=== PATIENT | female | born 1950 | race Two or more races ===

== ENCOUNTER 2021-06-13 21:57 | Inpatient (IN) | payer MEDICARE, OTHER ==
[~2021-06-13] VITALS: Ht 157.5 cm; Wt 69.9 kg
[2021-06-13] MEDS ORDERED: AMLO-213 PO (22:29)
[2021-06-13] MEDS ORDERED: BENA40TA8 PO (22:29)
[2021-06-13] MEDS ORDERED: HYDR25TA4 PO (22:30)
[2021-06-13] MEDS ORDERED: ATOR80TA PO (22:32)
[2021-06-13] MEDS ORDERED: DONE10TA44 PO (22:32)
[2021-06-13] MEDS ORDERED: SERT100T PO (22:34)
[2021-06-13] MEDS ORDERED: BLOOD SUGAR DIAGNOSTIC 1 EACH STRIP IN ONE (23:00)
[2021-06-13] MEDS ORDERED: TEMAZEPAM 7.5 MG CAPSULE PO PRN (23:00)
[2021-06-13] MEDS ORDERED: MAG HYDROX/AL HYDROX/SIMETH 30 ML UDC PO PRN (23:00)
[2021-06-13] MEDS ORDERED: MAGNESIUM HYDROXIDE 30 ML UDC PO PRN (23:00)
[2021-06-13 23:01] VITALS: BP 146/68
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
--- NOTE | 2021-06-13 23:45 | NUR ---
GPS RN NOTE, PATIENT NEEDS A MEDICATION RECONCILIATION. PAGED [facility]. WAITING FOR DR ANGIE RAMIREZ TO RETURN CALL. WILL CONTINUE TO MONITOR THIS PATIENT WITH THE HELP OF STAFF.
[2021-06-14 00:29] VITALS: BP 146/68
--- NOTE | 2021-06-14 01:00 | NUR ---
GPS RN NOTE, PATIENT NEEDS A MEDICATION RECONCILIATION. PAGED [facility]. WAITING FOR DR ANGIE RAMIREZ TO RETURN CALL. WILL CONTINUE TO MONITOR THIS PATIENT WITH THE HELP OF STAFF.
--- NOTE | 2021-06-14 06:33 | NUR ---
GPS RN NOTES: CALLED TO NOTIFY PATIENT DAUGHTER (JIL CALLAHAN @ [phone]) OF PATIENT ADMISSION AT 0638 BUT NUMBER WAS NOT REACHABLE. WILL ENDORSE TO AM SHIFT TO FOLLOW UP.
[2021-06-14 07:01] LABS: BASOPHILS % (AUTO) 0.8 % (0.0-2.0); EOSINOPHILS % (AUTO) 2.7 % (0.0-6.0); HEMATOCRIT 36 % (33-45); LYMPHOCYTES # (AUTO) 2.2 K/uL (0.8-4.8); LYMPHOCYTES % (AUTO) 52.2 % (20.0-44.0); MEAN CORPUSCULAR HGB CONC 33 g/dl (31.0-36.0); MEAN CORPUSCULAR VOLUME 92 fL (82-100); MONOCYTES # (AUTO) 0.4 K/uL (0.1-1.30); MONOCYTES % (AUTO) 9.7 % (2.0-12.0); NEUTROPHILS # (AUTO) 1.5 K/uL (1.8-8.9); NEUTROPHILS % (AUTO) 34.6 % (43.0-81.0); PLATELET COUNT (AUTO) 243 K/uL (150-450); WHITE BLOOD COUNT (AUTO) 4.2 K/uL (4.3-11.0)
[2021-06-14 07:19] LABS: CALCIUM, SERUM 8.9 mg/dL (8.5-10.1); CREATININE 0.8 mg/dL (0.6-1.3); POTASSIUM 3.7 mmol/L (3.5-5.1)
[2021-06-14 08:00] VITALS: BP 122/91
--- NOTE | 2021-06-14 09:04 | NUR ---
Social Work Note/Substance Abuse Intervention: Patient was provided with a brief substance abuse intervention and referred to [facility] ([phone]), [facility] ([phone]), and [facility] ([phone]) for drinking wine everyday.
--- NOTE | 2021-06-14 10:09 | NUR ---
JACINTO Initial Discharge Plan: Patient currently resides at [address] [place] [address]; ([phone]). Pt lives alone and has a caregiver that will take care of pt during the week for about 4 hours. Pt would want to go back home upon discharge. JACINTO will work with the MD, treatment team, and family to help coordinate appropriate discharge.
--- NOTE | 2021-06-14 10:26 | NUR ---
JACINTO Family Contact: JACINTO contacted patient's daughter Masha ([phone]) to gather collateral. SW discussed treatment plan and discharge plan. Daughter stated that she is the probate conservator and stated she will send the documents to this specification writer. Daughter shared that she would want pt to go to a nursing facility because she has had 7 hospitalizations has been non compliant with her medications at home. She reported she does have a caregiver at home during the noon and afternoon (switching shifts of caregivers). Daughter expressed that pt is an alcoholic and has been drinking with neighbor. Daughter expressed that if the unit receives a call from person named Shad not to share any medical information and restraining order is filed against him. SW notified the unit and doctor.
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
--- NOTE | 2021-06-14 12:59 | NUR ---
PROBATE CONSERVATOR: Patient's daughter Masha ([phone]) sent probate conservatorship documents. SW placed in patient's chart.
[2021-06-14 16:00] VITALS: BP 145/79
[2021-06-14] MEDS: BLOOD SUGAR DIAGNOSTIC 1 EACH STRIP IN SCH ×2 (17:15→21:23)
[2021-06-14] MEDS: risperiDONE 1 MG TABLET PO SCH (17:34)
[2021-06-14 20:00] VITALS: BP_SYST 138; BP_SYST 164; BP_DIAS 80; BP_DIAS 88
[2021-06-14] MEDS: clonazePAM 0.5 MG TABLET PO PRN (20:28)
--- NOTE | 2021-06-14 20:30 | NUR ---
RN NOTES: ANXIETY PT.C/O VERY ANXIOUS , RESTLESS ,PACING IN HALLWAY PRN KLONOPIN 0.5 MG PO GIVEN WILL CONTINUE TO MONITOR.
[2021-06-14] MEDS: ATORVASTATIN 40 MG TABLET PO SCH (21:11)
[2021-06-14] MEDS: DONEPEZIL 5 MG TABLET PO SCH (21:11)
[2021-06-15] MEDS: BLOOD SUGAR DIAGNOSTIC 1 EACH STRIP IN SCH (07:36)
[2021-06-15 08:00] VITALS: BP 114/73
[2021-06-15] MEDS: SERTRALINE HCL 25 MG TABLET PO SCH ×2 (08:17→09:00)
[2021-06-15] MEDS: THIAMINE HCL 100 MG TABLET PO SCH ×2 (08:17→09:00)
[2021-06-15] MEDS: AMLODIPINE BESYLATE 10 MG TABLET PO SCH ×2 (08:17→09:00)
[2021-06-15] MEDS: risperiDONE 1 MG TABLET PO SCH ×3 (08:18→16:52)
[2021-06-15] MEDS: BENAZEPRIL HCL 20 MG TABLET PO SCH ×2 (08:18→09:00)
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
--- NOTE | 2021-06-15 12:07 | NUR ---
RN-NOTES DR. SANTIAGO IN THE UNIT WITH VERBAL ORDER TO D/C BS CHECK.NOTED AND CARRIED OUT.
[2021-06-15] MEDS ORDERED: IBUPROFEN 400 MG TABLET PO PRN (12:30)
[2021-06-15 16:00] VITALS: BP 143/72
[2021-06-15] MEDS: clonazePAM 0.5 MG TABLET PO PRN (19:38)
--- NOTE | 2021-06-15 19:39 | NUR ---
RN NOTES: ANXIETY PT.C/O VERY ANXIOUS , RESTLESS,PARANOID ,PACING IN HALLWAY PRN KLONOPIN 0.5 MG PO GIVEN WILL CONTINUE TO MONITOR.
[2021-06-15 20:00] VITALS: BP 129/80
[2021-06-15] MEDS: DONEPEZIL 5 MG TABLET PO SCH (21:10)
[2021-06-15] MEDS: ATORVASTATIN 40 MG TABLET PO SCH (21:10)
[2021-06-16 08:00] VITALS: BP 138/88
[2021-06-16] MEDS: SERTRALINE HCL 25 MG TABLET PO SCH (08:35)
[2021-06-16] MEDS: risperiDONE 1 MG TABLET PO SCH ×2 (08:35→16:08)
[2021-06-16] MEDS: THIAMINE HCL 100 MG TABLET PO SCH (08:37)
[2021-06-16] MEDS: BENAZEPRIL HCL 20 MG TABLET PO SCH (08:37)
[2021-06-16] MEDS: AMLODIPINE BESYLATE 10 MG TABLET PO SCH (08:38)
[2021-06-16] MEDS: clonazePAM 0.5 MG TABLET PO PRN (13:04)
[2021-06-16] MEDS: ACETAMINOPHEN 325 MG TABLET PO PRN (13:04)
--- NOTE | 2021-06-16 13:04 | NUR ---
RN-CO: KLONOPIN 0.5 MG PO GIVEN FOR ANXIETY.
[2021-06-16 16:00] VITALS: BP 116/69
[2021-06-16 20:19] VITALS: BP 106/54
[2021-06-16] MEDS: DONEPEZIL 5 MG TABLET PO SCH (21:33)
[2021-06-16] MEDS: ATORVASTATIN 40 MG TABLET PO SCH (21:33)
[2021-06-17 08:00] VITALS: BP 105/58
[2021-06-17] MEDS: SERTRALINE HCL 50 MG TABLET PO SCH (08:50)
[2021-06-17] MEDS: AMLODIPINE BESYLATE 10 MG TABLET PO SCH (08:51)
[2021-06-17] MEDS: BENAZEPRIL HCL 20 MG TABLET PO SCH (08:52)
[2021-06-17] MEDS: THIAMINE HCL 100 MG TABLET PO SCH (08:53)
--- NOTE | 2021-06-17 10:53 | NUR ---
PROBATE CONSERVATOR: Patient's daughter Masha ([phone]) is agreeable of pt going to [facility].
--- NOTE | 2021-06-17 10:54 | NUR ---
SNF Referral: Per patient's daughters request who is the probate conservator. SW sent clinicals to [facility] to [facility] ([phone]) [facility]. SW sent H & P, progress notes, and medication list.
[2021-06-17 16:00] VITALS: BP 131/68
[2021-06-17 20:01] VITALS: BP 134/68
[2021-06-17] MEDS: DONEPEZIL 5 MG TABLET PO SCH (22:09)
[2021-06-17] MEDS: ATORVASTATIN 40 MG TABLET PO SCH (22:09)
[2021-06-17] MEDS: ACETAMINOPHEN 325 MG TABLET PO PRN (22:13)
--- NOTE | 2021-06-17 22:16 | NUR ---
GPS RN NOTES: PATIENT C/O BILATERAL KNEE AND WRIST PAIN. RATES PAIN LEVEL 6/10. TYLENOL 650MG GIVEN PO AT 2213. WILL CONTINUE TO MONITOR.
--- NOTE | 2021-06-18 06:56 | NUR ---
GPS RN CLOSING NOTES: PATIENT IS AWAKE, A/O X2. PATIENT SLEPT 6HR THIS SHIFT. NO S/S OF DISTRESS NOTED. RESPIRATION EVEN AND UNLABORED WITH EQUAL RISE AND FALL OF THE CHEST, ON ROOM AIR. ALL PATIENT CARE NEEDS HAVE BEEN MET ANTICIPATED. WILL CONTINUE TO MONITOR AND ENDORSE TO AM SHIFT TO FOLLOW UP.
[2021-06-18 08:00] VITALS: BP 127/71
[2021-06-18] MEDS: QUETIAPINE FUMARATE 25 MG TABLET PO SCH (08:27)
[2021-06-18] MEDS: SERTRALINE HCL 50 MG TABLET PO SCH (08:27)
[2021-06-18] MEDS: THIAMINE HCL 100 MG TABLET PO SCH (08:27)
[2021-06-18] MEDS: AMLODIPINE BESYLATE 10 MG TABLET PO SCH (08:28)
[2021-06-18] MEDS: BENAZEPRIL HCL 20 MG TABLET PO SCH (08:28)
--- NOTE | 2021-06-18 09:09 | NUR ---
Court Hearing Notification: SW contacted patient's probate conservator Masha, daughter, ([phone]) and notified of patient's 7553 hearing. SW left a detailed voicemail.
--- NOTE | 2021-06-18 10:20 | NUR ---
Court Hearing: Patient's court hearing for 8710 was today and it was upheld for GD.
[2021-06-18] MEDS: ACETAMINOPHEN 325 MG TABLET PO PRN (10:44)
--- NOTE | 2021-06-18 10:53 | NUR ---
SNF Contact: JACINTO received a call from [facility] to [facility] ([phone]) frame bander for placement option. JACINTO sent H & P, progress notes, and medication list. Addendum: 06/18/21 at 1053 by JACINTO [facility] SN[facility] Contact: JACINTO received a call from [facility] ([phone]) who stated that pt is accepted.
--- NOTE | 2021-06-18 10:54 | NUR ---
JACINTO Note: SW spoke with patient and stated that she is accepted at [facility] and she is agreeable of going to the nursing facility.
--- NOTE | 2021-06-18 10:54 | NUR ---
PROBATE CONSERVATOR: SW contacted patient's daughter Masha ([phone]) probate conservator and notified that pt will be discharged 06/19/21 to [facility] [place] [facility] and pt is accepting.
[2021-06-18 16:00] VITALS: BP_SYST 130; BP_SYST 96; BP_DIAS 67; BP_DIAS 71
[2021-06-18 19:53] VITALS: BP 153/69
[2021-06-18] MEDS: ATORVASTATIN 40 MG TABLET PO SCH (21:21)
[2021-06-18] MEDS: DONEPEZIL 5 MG TABLET PO SCH (21:21)
--- NOTE | 2021-06-18 21:50 | NUR ---
GPS RN NOTE PATIENT TAKES 80 MG OF LIPITOR SCHEDULED AT 2200, BUT ONLY 1 LIPITOR (40MG) WAS TAKEN OUT OF OMNICELL THE FIRST TIME. ANOTHER LIPITOR WAS TAKEN OUT FROM OMNICELL AGAIN AND TOTAL 3 LIPITOR 40 MG EACH LEFT IN THE OMNICELL AT THAT TIME. TOTAL OF 80 MG OF LIPITOR WAS ADMINISTERED TO THE PATIENT ORDERED.
--- NOTE | 2021-06-19 06:30 | NUR ---
COVID SWAB SENT TO LAB.
[2021-06-19 08:00] VITALS: BP 142/61
--- NOTE | 2021-06-19 08:17 | NUR ---
Discharge Note" [facility] [place] [facility] [place] [facility] [address] [facility] [address], [place] [address]; ). Please arrange ambulance at 2PM. Emergency Vehicle Dispatcher spoke with [facility] Assembly Leader at [facility]; ([phone]), who stated patient will be accepted today. Patients daughter Probate Conservator Masha ([phone]) is aware and agreeable of dc. Patient is alert and oriented x2 and is unable to plan for self-care. Patient denies any suicidal or homicidal ideations. Patient will continue to follow-up with [place] Psychiat[place]. [place] [address] [place] [address]; ([phone]) and (Workforce Investment Act Career Manager) Dr. Carbone [address] [facility] [address] [facility] [address], [place] [address]; ([phone]). Patient presents with euthymic mood and congruent affect.
[2021-06-19] MEDS: AMLODIPINE BESYLATE 10 MG TABLET PO SCH (08:55)
[2021-06-19] MEDS: QUETIAPINE FUMARATE 25 MG TABLET PO SCH (08:55)
[2021-06-19] MEDS: SERTRALINE HCL 50 MG TABLET PO SCH (08:55)
[2021-06-19 09:00] VITALS: BP 142/61
[2021-06-19] MEDS: BENAZEPRIL HCL 20 MG TABLET PO SCH (09:00)
[2021-06-19] MEDS: THIAMINE HCL 100 MG TABLET PO SCH (09:00)
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
--- NOTE | 2021-06-19 15:15 | NUR ---
Patient discharged to [facility] in stable condition.Compliant with medications ,cooperative with treatment plans Patient denies SI/HI/AVH .Behavior improved ,psychiatric tx plans met ,medical tx plans differed for for continual monitoring .Educated pt about after care plan (Exit -care)and copy provided .Returned personal belongings to patient med list given and explained to patient able to verbalize understanding, report given to Jb nurse in facility .Vs stable ,no c/o pain .Patient seen by Isrrael Owens and with discharge orders and prescriptions .Patient discharge at 1515 with ambulance.
--- NOTE | 2021-06-19 15:42 | NUR ---
Writ: legal administrative secretary spoke with Kamran ([phone]) to cancel pt's writ as pt has been discharged.
== END 2021-06-19 15:15 | DRG 885 ==
LOC: GPS 21:57
PROVIDERS: ADMIT Psychiatry & Neurology Psychiatry; ATTEND Student in an Organized Health Care Education/Training Program
DX: F29 Unspecified psychosis not due to a substance or known physiological condition (principal); F03.91 Unspecified dementia, unspecified severity, with behavioral disturbance; F41.9 Anxiety disorder, unspecified; E78.5 Hyperlipidemia, unspecified; E86.0 Dehydration; F32.A Depression, unspecified; I10 Essential (primary) hypertension; K21.9 Gastro-esophageal reflux disease without esophagitis; Z90.710 Acquired absence of both cervix and uterus; Z91.19 Patient's noncompliance with other medical treatment and regimen; R73.03 Prediabetes; F39 Unspecified mood [affective] disorder; F10.10 Alcohol abuse, uncomplicated; Z20.822 Contact with and (suspected) exposure to COVID-19; Z79.899 Other long term (current) drug therapy
CPT/HCPCS: 36415; 80048-TC; 80061-TC; 82962-TC; 84443-TC; 85025-TC; 87081-TC

== ENCOUNTER 2021-06-22 22:30 | Inpatient (IN) | payer MEDICARE, OTHER ==
[~2021-06-22] VITALS: Ht 167.6 cm; Wt 65.8 kg
[~2021-06-22 22:30] MED LIST: AMLO-213 PO; ATOR80TA PO; BENA40TA8 PO; DONE10TA44 PO; HYDR25TA4 PO
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
[2021-06-22 23:11] LABS: BASOPHILS % (AUTO) 0.5 % (0.0-2.0); EOSINOPHILS % (AUTO) 2.7 % (0.0-6.0); HEMATOCRIT 34 % (33-45); HEMOGLOBIN 11.2 g/dL (11.5-14.8); LYMPHOCYTES # (AUTO) 2.1 K/uL (0.8-4.8); LYMPHOCYTES % (AUTO) 48.2 % (20.0-44.0); MEAN CORPUSCULAR HGB CONC 33 g/dl (31.0-36.0); MEAN CORPUSCULAR VOLUME 93 fL (82-100); MONOCYTES # (AUTO) 0.5 K/uL (0.1-1.30); MONOCYTES % (AUTO) 10.6 % (2.0-12.0); NEUTROPHILS # (AUTO) 1.6 K/uL (1.8-8.9); PLATELET COUNT (AUTO) 229 K/uL (150-450); RED BLOOD CELL COUNT(AUTO) 3.64 MIL/uL (4.0-5.2); WHITE BLOOD COUNT (AUTO) 4.3 K/uL (4.3-11.0)
[2021-06-22 23:24] LABS: CALCIUM, SERUM 8.8 mg/dL (8.5-10.1); CARBON DIOXIDE 26 mmol/L (21-32); CHLORIDE 104 mmol/L (98-107); CREATININE 0.8 mg/dL (0.6-1.3); GLUCOSE 106 mg/dL (74-106); POTASSIUM 3.7 mmol/L (3.5-5.1); SODIUM SERUM 137 mmol/L (136-145); UREA NITROGEN, BLOOD 23 mg/dL (7-18)
[2021-06-22 23:29] LABS: ALANINE AMINOTRANSFERASE 22 U/L (12-78); ALBUMIN 3.6 g/dL (3.4-5.0); ALCOHOL, BLOOD < 3 mg/dL (0-0); ALKALINE PHOSPHATASE 112 U/L (46-116); ASPARTATE AMINOTRANSFERASE 21 U/L (15-37); BILIRUBIN,DIRECT 0.1 mg/dL (0.0-0.2); BILIRUBIN,TOTAL 0.2 mg/dL (0.2-1.0)
[2021-06-22 23:34] LABS: ACETAMINOPHEN 0 ug/ml (10-30)
--- NOTE | 2021-06-22 23:59 | NUR ---
COVID ANTIGEN SWAB COLLECTED AND SENT TO LAB
[2021-06-23] MEDS ORDERED: LIDOCAINE 5% (PATCH) 1 EA PATCH TP SCH
[2021-06-23] MEDS ORDERED: LIDOCAINE 5% (PATCH) 1 EA PATCH TP ONE (00:11)
--- NOTE | 2021-06-23 01:21 | NUR ---
PT UNABLE TO PROVIDE URINE SAMPLE AT THIS TIME
--- NOTE | 2021-06-23 02:42 | NUR ---
REPORT GIVEN TO MOIRA BENTON FOR [facility]
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
--- NOTE | 2021-06-23 03:21 | NUR ---
PT TRANSPORTED TO UNIT ON GURNEY WITH EMT AT BEDSIDE ON STABLE CONDITION. PT AMBULATED FROM GURNEY TO BED W/O ASSIST.
[2021-06-23] MEDS ORDERED: TEMAZEPAM 7.5 MG CAPSULE PO PRN (03:30)
[2021-06-23] MEDS ORDERED: clonazePAM 0.5 MG TABLET PO PRN (03:30)
[2021-06-23] MEDS ORDERED: MAGNESIUM HYDROXIDE 30 ML UDC PO PRN (03:30)
[2021-06-23] MEDS ORDERED: MAG HYDROX/AL HYDROX/SIMETH 30 ML UDC PO PRN (03:30)
[2021-06-23] MEDS ORDERED: ACETAMINOPHEN 325 MG TABLET PO PRN (03:30)
[2021-06-23] MEDS ORDERED: BLOOD SUGAR DIAGNOSTIC 1 EACH STRIP IN ONE (03:30)
[2021-06-23 03:38] VITALS: BP 143/78
[2021-06-23 04:09] VITALS: BP 135/74
[2021-06-23] MEDS ORDERED: SERT100T PO (04:09)
[2021-06-23] MEDS ORDERED: QUET25TA PO (04:09)
[2021-06-23] MEDS ORDERED: THIA100T88 PO (04:10)
[2021-06-23] MEDS ORDERED: IBUP-1955 PO (05:07)
[2021-06-23 08:00] VITALS: BP 148/68
[2021-06-23] MEDS ORDERED: THIA100T74 PO (08:19)
[2021-06-23] MEDS ORDERED: IBUPROFEN 600 MG TABLET PO PRN (10:00)
--- NOTE | 2021-06-23 11:31 | NUR ---
RN-CO: PT REFUSED TO PROVIDE URINE SPECIMEN. I WILL TRY AGAIN LATER.
[2021-06-23] MEDS: DIVALPROEX SODIUM 125 MG TABLET.DR PO SCH ×3 (14:00→21:11)
[2021-06-23] MEDS: SERTRALINE HCL 25 MG TABLET PO SCH (15:15)
[2021-06-23] MEDS: QUETIAPINE FUMARATE 25 MG TABLET PO SCH ×2 (15:16→21:29)
[2021-06-23 16:00] VITALS: BP 142/76
--- NOTE | 2021-06-23 17:48 | NUR ---
RN-CO: Patient refused again to provide skin specimen.
[2021-06-23 20:22] VITALS: BP 123/63
[2021-06-23] MEDS: DONEPEZIL 5 MG TABLET PO SCH (21:29)
[2021-06-23] MEDS: ATORVASTATIN 40 MG TABLET PO SCH (21:30)
--- NOTE | 2021-06-23 23:49 | NUR ---
Refused skin assessment.
[2021-06-24 06:44] LABS: BASOPHILS % (AUTO) 0.7 % (0.0-2.0); EOSINOPHILS % (AUTO) 2.4 % (0.0-6.0); HEMATOCRIT 34 % (33-45); HEMOGLOBIN 11.5 g/dL (11.5-14.8); LYMPHOCYTES # (AUTO) 2.2 K/uL (0.8-4.8); LYMPHOCYTES % (AUTO) 50.6 % (20.0-44.0); MEAN CORPUSCULAR HGB CONC 34 g/dl (31.0-36.0); MEAN CORPUSCULAR VOLUME 94 fL (82-100); MONOCYTES # (AUTO) 0.5 K/uL (0.1-1.30); MONOCYTES % (AUTO) 12.3 % (2.0-12.0); NEUTROPHILS # (AUTO) 1.5 K/uL (1.8-8.9); PLATELET COUNT (AUTO) 224 K/uL (150-450); RED BLOOD CELL COUNT(AUTO) 3.64 MIL/uL (4.0-5.2); WHITE BLOOD COUNT (AUTO) 4.3 K/uL (4.3-11.0)
[2021-06-24 07:58] LABS: ALBUMIN 3.2 g/dL (3.4-5.0); BILIRUBIN,TOTAL 0.4 mg/dL (0.2-1.0); CALCIUM, SERUM 8.6 mg/dL (8.5-10.1); CREATININE 0.7 mg/dL (0.6-1.3); POTASSIUM 3.7 mmol/L (3.5-5.1); TOTAL PROTEIN, SERUM 6.5 g/dL (6.4-8.2)
[2021-06-24 08:00] VITALS: BP 136/73
[2021-06-24] MEDS: SERTRALINE HCL 25 MG TABLET PO SCH (08:12)
[2021-06-24] MEDS: DIVALPROEX SODIUM 125 MG TABLET.DR PO SCH ×2 (08:14→21:00)
[2021-06-24] MEDS: BENAZEPRIL HCL 20 MG TABLET PO SCH (08:14)
[2021-06-24] MEDS: THIAMINE HCL 100 MG TABLET PO SCH (08:37)
[2021-06-24] MEDS: AMLODIPINE BESYLATE 10 MG TABLET PO SCH (08:37)
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
--- NOTE | 2021-06-24 09:10 | NUR ---
PROBATE CONSERVATOR: PATIENT'S DAUGHTER JIL IS PROBATE CONSERVATOR ([phone]). SW PLACED DOCUMENT IN THE CHART.
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
--- NOTE | 2021-06-24 10:31 | NUR ---
SW Family Contact: SW contacted patient's daughter Masha probate conservator ([phone]) and left a voicemail of pt's admission. SW notified to discuss about treatment/discharge plan.
[2021-06-24 16:00] VITALS: BP 151/70
[2021-06-24 19:30] VITALS: BP 132/56
[2021-06-24] MEDS: QUETIAPINE FUMARATE 25 MG TABLET PO SCH (21:14)
[2021-06-24] MEDS: ATORVASTATIN 40 MG TABLET PO SCH ×2 (21:14→21:21)
[2021-06-24] MEDS: DONEPEZIL 5 MG TABLET PO SCH ×2 (21:14→21:21)
[2021-06-25 08:37] VITALS: BP 126/52
[2021-06-25] MEDS: AMLODIPINE BESYLATE 10 MG TABLET PO SCH (09:43)
[2021-06-25] MEDS: BENAZEPRIL HCL 20 MG TABLET PO SCH (09:43)
[2021-06-25] MEDS: SERTRALINE HCL 25 MG TABLET PO SCH (09:44)
[2021-06-25] MEDS: DIVALPROEX SODIUM 125 MG TABLET.DR PO SCH ×2 (09:44→21:14)
[2021-06-25] MEDS: THIAMINE HCL 100 MG TABLET PO SCH (09:44)
--- NOTE | 2021-06-25 12:54 | NUR ---
JACINTO Family Contact: SW contacted patient's daughter Masha moate conservator ([phone]) and stated pt will be discharged back to [facility] on 06/26.
--- NOTE | 2021-06-25 14:09 | NUR ---
dr. sanford informed pt. did not take seroquel and depakote last night.
--- NOTE | 2021-06-25 14:11 | NUR ---
pt. verbalized about being anxious with regard to discharge.
[2021-06-25 15:54] VITALS: BP 137/72
--- NOTE | 2021-06-25 18:39 | NUR ---
very agitated at this time as was handed confidential pt. report,and upset with info on paper.
[2021-06-25 20:22] VITALS: BP 139/70
[2021-06-25] MEDS: ATORVASTATIN 40 MG TABLET PO SCH (21:14)
[2021-06-25] MEDS: DONEPEZIL 5 MG TABLET PO SCH (21:15)
[2021-06-25] MEDS: QUETIAPINE FUMARATE 25 MG TABLET PO SCH (21:15)
--- NOTE | 2021-06-26 06:37 | NUR ---
RN NOTES: COVID ANTIGEN TEST COLLECTED, AND SEND OUT TO THE LAB.
[2021-06-26 08:00] VITALS: BP 118/90
--- NOTE | 2021-06-26 08:04 | NUR ---
SW Discharge Note: Patient will be discharged to retirement facility [facility] [address], [place] [address]; ). Please arrange ambulance at 1PM. Ocularist spoke with [facility] Cardiothoracic Physiotherapist at [facility]; ([phone]), who stated patient will be accepted today. Patients daughter Probate Conservator Masha ([phone]) is aware and agreeable of dc. Patient is alert and oriented x2 and is unable to plan for self-care. Patient denies any suicidal or homicidal ideations. Patient will continue to follow-up with [place]iat[place]. [place] [address] [place] [address]; ([phone]) and (Blower Room Attendant) Dr. Carbone [address] [facility] [address], [place] [address]; ([phone]). Patient presents with euthymic mood and congruent affect.
[2021-06-26] MEDS: BENAZEPRIL HCL 20 MG TABLET PO SCH (08:55)
[2021-06-26 08:56] VITALS: BP 118/90
[2021-06-26] MEDS: THIAMINE HCL 100 MG TABLET PO SCH (08:56)
[2021-06-26] MEDS: AMLODIPINE BESYLATE 10 MG TABLET PO SCH (08:56)
[2021-06-26] MEDS: SERTRALINE HCL 25 MG TABLET PO SCH (08:56)
[2021-06-26] MEDS: DIVALPROEX SODIUM 125 MG TABLET.DR PO SCH (08:56)
--- NOTE | 2021-06-26 08:57 | NUR ---
IBUPROFEN PRN GIVEN FOR BACK PAIN. WILL CONTINUE TO MONITOR.
--- NOTE | 2021-06-26 12:31 | NUR ---
Patient has been discharged to [facility], [place] [address]; ). Patient left unit via gurney with ambulance transport staff @ 1222. Patients daughter Probate Conservator Masha ([phone]) is aware and agreeable of dc. Patient is alert and oriented x2 and is unable to plan for self-care. Patient denies any suicidal or homicidal ideation at this time. Patient denies auditory and visual hallucinations at this time. No signs of acute distress noted at this time. Patient will continue to follow-up with [place] Psychiatrist [place]. [place] [address] [place] [address]; ([phone]) and (Flow Manager) Dr. Carbone [address] [facility] [address], [place] [address]; ([phone]). Patient presents with euthymic mood and congruent affect. Exit Care instructions, medication reconciliation list for psychiatry and medical care, education and discharge documents signed and provided in patient's discharge packet. All belongings and valuables returned. Report given to Hilaria YU at [facility].
--- NOTE | 2021-06-28 12:58 | NUR ---
APS: SW received a call from APS high risk case manager for pt Zahida ([phone]) to gather information in regards to pt's case and she will follow up with pt at [facility] for interview.
== END 2021-06-26 12:20 | DRG 885 ==
LOC: ER 22:38 → GPS 06-23 02:36
PROVIDERS: ADMIT Nurse Practitioner Psychiatric/Mental Health; ATTEND Internal Medicine
DX: F31.9 Bipolar disorder, unspecified (principal); F23 Brief psychotic disorder; I10 Essential (primary) hypertension; M19.90 Unspecified osteoarthritis, unspecified site; Z79.899 Other long term (current) drug therapy; Z73.6 Limitation of activities due to disability; R27.8 Other lack of coordination; Z91.81 History of falling; F41.9 Anxiety disorder, unspecified; R53.1 Weakness; Z82.49 Family history of ischemic heart disease and other diseases of the circulatory system; Z83.3 Family history of diabetes mellitus; Z90.710 Acquired absence of both cervix and uterus; F03.90 Unspecified dementia, unspecified severity, without behavioral disturbance, psychotic disturbance, mood disturbance, and anxiety
CPT/HCPCS: 36415; 80048-TC; 80053-TC; 80061-TC; 80076-TC; 80164-TC; 82962-TC; 85025-TC; 85652-TC; 86140-TC; 87081-TC; C9803; G0480